=== PATIENT | male | born 1980 | race Caucasian/White ===

== ENCOUNTER 2024-01-21 23:49 | Emergency (ER) | payer BC ==
--- NOTE | 2024-01-22 01:10 | ER ---
Nurse's Notes [facility] Name: Jalil Zabala Age: 43 yrs Sex: Male : 1980 Arrival Date: 01/21/2024 Time: 23:49 Bed 20 Private MD: Diagnosis: Constipation, unspecified Presentation: 01/20 23:58 Chief complaint: Patient states: c/o constipation since today, last BM was yesterday. al5 Tried suppositories and stool softeners at home and did not help. Coronavirus screen: At this time, the client does not indicate any symptoms associated with coronavirus-19. Ebola Screen: No symptoms or risks identified at this time. Initial Sepsis Screen: Does the patient meet any 2 criteria? HR > 90 bpm. No. Patient's initial sepsis screen is negative. Does the patient have a suspected source of infection? No. Patient's initial sepsis screen is negative. Risk Assessment: Do you want to hurt yourself or someone else? Patient reports no desire to harm self or others. Onset of symptoms was January 22, 2024. Care prior to arrival: Medication(s) given: suppositories and stool softeners. 23:58 Method Of Arrival: Ambulatory al5 23:58 Acuity: MONSERRAT 3 al5 Triage Assessment: 01/21 00:02 General: Appears in no apparent distress. Behavior is calm, cooperative. Pain: al5 Complains of pain in rectal Pain currently is 9 out of 10 on a pain scale. Pain began 1 day ago. Is continuous. EENT: No deficits noted. No signs and/or symptoms were reported regarding the EENT system. Neuro: Level of Consciousness is awake, alert, obeys commands, Oriented to person, place, time, situation, Speech is normal, Facial symmetry appears normal. Cardiovascular: No deficits noted. Capillary refill < 3 seconds Patient's skin is warm and dry. Respiratory: No deficits noted. Airway is patent Trachea midline Respiratory effort is even, unlabored, Respiratory pattern is regular, symmetrical. GI: Abdomen is round non-distended, Stools are reported to be constipated. Last BM was January 21, 2024. : No deficits noted. No signs and/or symptoms were reported regarding the genitourinary system. Derm: No deficits noted. Skin is intact, Skin is pink, warm \T\ dry. normal, Skin temperature is warm. Musculoskeletal: No deficits noted. No signs and/or symptoms reported regarding the musculoskeletal system. Historical: - Allergies: 00:02 No Known Allergies; al5 - PMHx: 00:02 None; al5 - PSHx: 00:02 hernia repair; al5 - Immunization history:: Adult Immunizations up to date. - Infectious Disease History:: Denies. - Social history:: Smoking status: Patient reports the use of cigarette tobacco products, smokes one pack cigarettes per day. Screenin:35 [facility] ED Fall Risk Assessment (Adult) History of falling in the last 3 months, rg5 including since admission No falls in past 3 months (0 pts) Confusion or Disorientation No (0 pts) Intoxicated or Sedated No (0 pts) Impaired Gait No (0 pts) Mobility Assist Device Used No (0 pt) Altered Elimination Yes (1 pt) Score/Fall Risk Level 0 - 2 = Low Risk. Abuse screen: Denies threats or abuse. Nutritional screening: No deficits noted. Tuberculosis screening: No symptoms or risk factors identified. Assessment: 00:35 General: Appears comfortable, Behavior is calm, cooperative, appropriate for age. Pain: rg5 Complains of pain in abdomen Pain currently is 5 out of 10 on a pain scale. Quality of pain is described as crampy, Pain began 3 hours ago. Neuro: Level of Consciousness is awake, alert, obeys commands, Oriented to person, place, time. Cardiovascular: Capillary refill < 3 seconds. Respiratory: Airway is patent Trachea midline Respiratory effort is even, unlabored, relaxed. GI: Bowel sounds present in left lower quadrant Abd is soft X 4 quads Reports constipation. : No signs and/or symptoms were reported regarding the genitourinary system. EENT: No signs and/or symptoms were reported regarding the EENT system. Derm: Skin is intact. Musculoskeletal: Range of motion: intact in all extremities. Vital Signs: 01/20 23:58 BP 153 / 91; Pulse 91; Resp 18; Temp 97.5(TE); Pulse Ox 97% on R/A; Weight 99.79 kg; al5 Height 5 ft. 6 in. ; Pain 9/10; 01/21 00:35 BP 146 / 94; Pulse 87; Resp 18; Temp 98; rg5 01/20 23:58 Body Mass Index 35.51 (99.79 kg, 167.64 cm) al5 01/20 23:58 Pain Scale: Adult al5 [place] Coma Score: 00:35 Eye Response: spontaneous(4). Motor Response: obeys commands(6). Verbal Response: rg5 oriented(5). Total: 15. ED Course: 01/20 23:52 Patient arrived in ED. mr 01/21 00:02 Triage completed. al5 00:04 Arm band placed on right wrist. Patient placed in an exam room, on a stretcher. al5 00:09 Kirsten Escobar, TIFFANY is Primary Nurse. ha1 00:23 Eduardo Mcnally MD is Attending Physician. bo1 00:35 Awaiting for x-ray. rg5 00:35 Patient has correct armband on for positive identification. Call light in reach. Side rg5 rails up X 1. Provided Education on: post er care. 00:35 No provider procedures requiring assistance completed. Patient did not have IV access rg5 during this emergency room visit. 00:59 XRAY Abdomen 1 View (KUB) In Process Unspecified. EDMS Administered Medications: No medications were administered Medication: 00:35 VIS not applicable for this client. rg5 Outcome: 01:10 Discharge ordered by . bo1 01:20 Discharged to home ambulatory, rg5 01:20 Condition: stable 01:20 Discharge instructions given to patient, Instructed on discharge instructions, follow up and referral plans. Demonstrated understanding of instructions, follow-up care, medications, Prescriptions given X 1, 01:21 Patient left the ED. rg5 Signatures: Dispatcher [employer] EDMS Merna Graham, Reg Reg mr Kirsten Escobar, TIFFANY ALLEN ha1 Eduardo Mcnally MD MD bo1 Randal Hinton RN RN rg5 Tea Gregory RN RN al5
--- NOTE | 2024-01-22 01:10 | EDPHYS ---
Physician Documentation [facility] Name: Jalil Zabala Age: 43 yrs Sex: Male : 1980 Arrival Date: 01/21/2024 Time: 23:49 Bed 20 Private MD: ED Physician Eduardo Mcnally HPI: 01/21 00:26 This 43 yrs old Male presents to ER via Ambulatory with complaints of Constipation. bo1 00:26 Pt reports that he's tried OTC stool softener. Also suppository w/o effect. No prior hx bo1 of same. Lowered carbohydrate intake. Some vegetables. Pt thinks he drinks enough water per day. No vomiting. No bloody stool.. Onset: The symptoms/episode began/occurred yesterday. Severity of symptoms: in the emergency department the symptoms are unchanged despite home interventions. Historical: - Allergies: 00:02 No Known Allergies; al5 - PMHx: 00:02 None; al5 - PSHx: 00:02 hernia repair; al5 - Immunization history:: Adult Immunizations up to date. - Infectious Disease History:: Denies. - Social history:: Smoking status: Patient reports the use of cigarette tobacco products, smokes one pack cigarettes per day. ROS: 00:28 Abdomen/GI: Positive for constipation, Negative for abdominal pain, nausea and bo1 vomiting, rectal pain, rectal bleeding, 01:12 Skin: Negative for jaundice, rash, bo1 01:12 Constitutional: Negative for fever, chills, and weight loss, bo1 Exam: 00:29 Neck: External neck: no acute changes, bo1 00:29 Cardiovascular: Rate: normal, Rhythm: regular, Pulses: Heart sounds: normal, 00:29 Abdomen/GI: Exam negative for guarding, rebound tenderness, Inspection: abdomen appears normal, obese Bowel sounds: active, Palpation: abdomen is soft and non-tender, 00:29 Skin: Exam negative for rash, 01:11 Constitutional: This is a well developed, well nourished patient who is awake, alert, bo1 and in no acute distress. Vital Signs: 01/20 23:58 BP 153 / 91; Pulse 91; Resp 18; Temp 97.5(TE); Pulse Ox 97% on R/A; Weight 99.79 kg; al5 Height 5 ft. 6 in. ; Pain 9/10; 01/21 00:35 BP 146 / 94; Pulse 87; Resp 18; Temp 98; rg5 01/20 23:58 Body Mass Index 35.51 (99.79 kg, 167.64 cm) al5 01/20 23:58 Pain Scale: Adult al5 [place] Coma Score: 00:35 Eye Response: spontaneous(4). Motor Response: obeys commands(6). Verbal Response: rg5 oriented(5). Total: 15. MDM: 00:23 Patient medically screened. bo1 01:08 Differential Diagnosis Constipation vs obstipation. ED course: Pt just had a BM in the bo1 ER and it "hurt" a little.. 01:11 Data reviewed: vital signs. bo1 01/21 00:30 Order name: XRAY Abdomen 1 View (KUB) bo1 Administered Medications: No medications were administered Disposition Summary: 01/22/24 01:10 Discharge Ordered Notes: Location: Home bo1 Problem: new bo1 Symptoms: are resolved bo1 Condition: Stable bo1 Diagnosis - Constipation, unspecified bo1 Followup: bo1 - With: Private Physician - When: As needed - Reason: Discharge Instructions: - Discharge Summary Sheet bo1 - Constipation, Adult, [id number] bo1 Forms: - Medication Reconciliation Form bo1 - Antibiotic Education bo1 - Prescription Opioid Use bo1 - Patient Portal Instructions bo1 - Leadership Thank You Letter bo1 Prescriptions: - Lactulose 10 gram/15 mL Oral Solution - take 30 milliliters ORAL route once daily; 300 milliliter; Refills: 0, Product bo1 Selection Permitted Signatures: Dispatcher [employer] EDMS Eduardo Mcnally MD MD bo1 Tea Gregory RN RN al5
[2024-01-22 01:30] VITALS: BP 146/94; TEMP 98; O2SAT 97
--- NOTE | 2024-01-22 12:09 | RAD REPORT ---
EXAM DESCRIPTION: Abdomen 1 View (KUB) CLINICAL HISTORY: CONSTIPATION COMPARISON: None. TECHNIQUE: XR ABDOMEN 1 VIEW (KUB) 01/22/2024 12:30 AM CDT FINDINGS: Bowel gas pattern is nonspecific. There are no abnormal radiopaque foreign bodies or abnor mal calcifications. Osseous structures are grossly unremarkable. IMPRESSION: No bowel obstruction. Electronically signed by: Jamison Hinojosa MD 01/22/2024 01:23 AM CDT RP Due to temporary technical issues with the PACS/Fluency reporting system, reports are being signed by the in house radiologist without review as a courtesy to ensure prompt reporting. The interpreting r adiologist is fully responsible for the content of the report.
== END 2024-01-22 01:21 | disposition home or self-care (01) ==
LOC: ER 23:49
DX: K59.00 Constipation, unspecified (principal)
CPT/HCPCS: 74018; 99283